=== PATIENT | female | born 1930 | race Caucasian/White ===

== ENCOUNTER 2018-03-02 10:55 | Inpatient (IN) | payer MEDICARE ==
[2018-03-02] MEDS ORDERED: Loperamide HCl 2 MG CAP ONE (12:00)
[2018-03-02 12:08] LABS: #Basophils 0.1 thou/uL (0.0-0.2); #Lymphocytes 0.6 thou/uL (1.20-3.40); #Monocytes 0.4 thou/uL (0.11-0.59); #Neutrophils 3.2 thou/uL (1.40-6.50); %Basophils 1.4 % (0.0-1.0); %Eosinophils 0.6 % (0.0-10.0); %Lymphocytes 14.8 % (21.0-51.0); %Monocytes 8.7 % (0.0-10.0); %Neutrophils 74.5 % (42.0-75.0); Hemoglobin 14.6 g/dL (12.0-16.0); Mean Corpuscular HGB CONC 34.2 g/dL (32.0-36.0); Mean Corpuscular Hemoglobin 32.2 pg (27.0-31.0); Mean Corpuscular Volume 94.4 fl (81.0-99.0); Mean Platelet Volume 9.5 fL (7.4-10.4); Platelet Count 124 thou/uL (130-400); RBC Distribution Width 11.7 % (11.5-14.5); Red Blood Cell (RBC) Count 4.54 mill/uL (4.20-5.40); White Blood Cell (WBC) Count 4.3 thou/uL (4.8-10.8)
[2018-03-02 12:30] LABS: ALT (SGPT) 13 U/L (8-55); AST (SGOT) 20 U/L (5-34); Albumin 4.1 g/dL (3.4-4.8); Alkaline Phosphatase 47 U/L (40-150); Anion Gap 13 mmol/L (10-20); BUN (Urea Nitrogen) 13 mg/dL (9.8-20.1); Bilirubin, Total 0.6 mg/dL (0.2-1.2); Calc. Creatinine Clearance 0 mL/min (70-130); Carbon Dioxide 23 mmol/L (23-31); Chloride 102 mmol/L (98-107); Estimated GFR-MDRD 58; Globulin 3.2 g/dL (2.4-3.5); Glucose 104 mg/dL (83-110); Lipase 16 U/L (8-78); Potassium 3.4 mmol/L (3.5-5.1); Protein, Total 7.3 g/dL (6.0-8.3); Sodium 135 mmol/L (136-145)
--- NOTE | 2018-03-02 13:45 | CT ---
CT ABDOMEN AND PELVIS WITH IV CONTRAST: Date: 03/02/18 HISTORY: Abdominal pain and diarrhea. FINDINGS: There are no previous exams for comparison. There are mild chronic changes in the lung bases. Calcified granulomas are seen in the spleen. There is a 2.6 cm cyst in the posterior segment of the right lobe of the liver. Tiny low density lesion in the left lobe of the liver is likely a cyst as well. The patient is post cholecystectomy. No fee air, free fluid, or lymphadenopathy seen in the abdomen or pelvis. Uterus is present. There are vascular calcifications without evidence of aneurysmal dilatation of the abdominal aorta. The pancreas, adrena l glands, and kidneys are unremarkable. There are vascular calcifications without evidence of aneurysmal dilatation of the abdominal aorta. T here are degenerative changes in the spine. There is mild dilatation of the proximal and mid small gina wel loops with a transition point in the right lower quadrant. 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 Sigmoid diverticulosis is present. IMPRESSION: 1. Findings suggestive of partial small bowel obstruction. 2. Liver cysts. 3. Old granulomatous disease. 4. Calcified mucocele of appendix. 5. Sigmoid diverticulosis. POS: [facility]
[2018-03-02] MEDS ORDERED: Amiodarone 200 MG TAB PO SCH (14:25)
[2018-03-02] MEDS ORDERED: Guaifenesin DM 100-10/5 ML UDCUP PO PRN (14:25)
[2018-03-02] MEDS ORDERED: Acetaminophen 325 MG TAB PO PRN (14:25)
[2018-03-02] MEDS ORDERED: Ondansetron HCl/PF 4 MG/2 ML Vial IVP PRN (14:25)
--- NOTE | 2018-03-02 14:56 | HP ---
DATE OF ADMISSION: 03/02/2018 REASON FOR ADMISSION: Acute gastroenteritis, possible partial small-bowel obstruction. HISTORY OF PRESENT ILLNESS: The patient gives history of having severe abdominal pain which was generalized, 10/10 in intensity, colicky in nature, which started on and Saturday. It was slowly easing up on Saturday, but the patient developed diarrhea on Saturday. She had nearly 10-12 times loose watery stool, no blood or mucus in it. Saturday, again the diarrhea eased up to 6-7 times. She started vomiting from yesterday evening and has been retching to the point her vomitus is bilious at present. She called her primary care physician this morning, Dr. Beard and was asked to go to the emergency room to get IV fluids. Here in the ER, she has had CT of the abdomen and pelvis done, which shows findings of possible partial small-bowel obstruction. No complaints of chest pain, palpitation, PND or orthopnea. The patient normally ambulates by herself. 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 Adkins, history of , tonsillectomy, hypothyroidism. CURRENT MEDICATIONS: The patient is on Xarelto 20 mg daily, amiodarone 200 mg daily, lisinopril 2.5 mg p.o. daily, torsemide 30 mg p.o. q.a.m., potassium chloride 10 mEq p.o. daily, levothyroxine 50 mcg p.o. daily, Prempro 0.625/2.5 mg 1 tab daily, magnesium 250 mg daily, vitamin B12 one tab daily, vitamin C 500 mg p.o. daily, vitamin D 3000 units p.o. daily, vitamin E 400 units p.o. daily. ALLERGIES: No known drug allergies. PERSONAL HISTORY: Does not abuse alcohol or drugs. No history of smoking. FAMILY HISTORY: Mother at the age of 104 years from old age. Father at the age of 64 years. He has had issues with his liver. He was not alcoholic. Oldest brother is currently living and is 94 years old. Her oldest son of Hodgkin's cancer at the age of 18 years, has a living son living in [place]. His name is Stew. The patient lives alone, ambulates by herself , does not use any assistive devices, she does all her activities by herself. CODE STATUS: Full. Power of assistant prosecuting attorney is her son, Mr. Mathias. He lives in [facility]. REVIEW OF SYSTEMS: The following complete review of systems was negative, unless otherwise mentioned in the HPI or below: Constitutional: Weight loss or gain, ability to conduct usual activities. Skin: Rash, itching. Eyes: Double vision, pain. ENT/Mouth: Nose bleeding, neck stiffness, pain, tenderness. Cardiovascular: Palpitations, dyspnea on exertion, orthopnea. Respiratory: Shortness of breath, wheezing, cough, hemoptysis, fever or night sweats. Gastrointestinal: Poor appetite, abdominal pain, heartburn, nausea, vomiting, constipation, or diarrhea. Genitourinary: Urgency, frequency, dysuria, nocturia. Musculoskeletal: Pain, swelling. Neurologic/Psychiatric: Anxiety, depression. Allergy/Immunologic: Skin rash, bleeding tendency. PHYSICAL EXAMINATION: GENERAL: The patient is an 87-year-old female who is currently not in any acute distress. Her abdominal pain has eased up at present. VITAL SIGNS: Blood pressure 150/46, pulse 72 per minute, respiratory rate 18 per minute, temperature 98.4 degrees Fahrenheit, saturating 96% on room air. NECK: Supple. No elevated JVD. HEENT: Extraocular muscles intact. Pupils reacting to light. Oral cavity, mucous membranes are dry. No exudates or congestion. CARDIOVASCULAR: S1, S2 heard. Regular rhythm. RESPIRATORY: Air entry 1+ bilaterally. No rales or rhonchi. ABDOMEN: Soft, bowel sounds heard. No tenderness, rigidity or guarding. EXTREMITIES: No peripheral edema or calf tenderness. VASCULAR SYSTEM: Peripheral pulses 1+ bilateral. No ischemic ulcerations or gangrene. CENTRAL NERVOUS SYSTEM: No gross focal deficits noted. The patient is alert, awake and oriented well. PSYCHIATRIC: The patient's mood is euthymic. No hallucinations or delusions. LABORATORY DATA: White count of 4, H&H 14 and 42, platelet count 124,000, potassium 3.4, BUN 13, creatinine 0.9, 74% neutrophils. Serum glucose 104. Lactic acid 1.6. Liver enzymes within normal limits. Albumin is 4.1, lipase is 16. CT of the abdomen and pelvis done shows findings suggestive of possible partial small-bowel obstruction. There is mild dilatation of the proximal and mid small bowel loops with a transition point in the right lower quadrant. CLINICAL IMPRESSION AND PLAN: The patient will be admitted to medical/surgical floor for likely acute gastroenteritis. CAT scan is suspicious for possible partial small-bowel obstruction. We will keep her n.p.o. except for meds. Dr. Adkins has been consulted from ER. We will continue her amiodarone and levothyroxine. She will be gently hydrated with normal saline at 70 mL per hour. We will obtain stool studies including cultures and for C. diff. We will continue to closely monitor her on the medical floor. RADHA
[2018-03-02 15:41] VITALS: BMI 22.1
[2018-03-02] MEDS: Sodium Chloride 0.9% 1,000 ML IV SCH (16:23)
--- NOTE | 2018-03-02 17:09 | CON ---
DATE OF CONSULTATION: 03/02/2018 GENERAL SURGERY CONSULTATION CHIEF COMPLAINT: Nausea, vomiting and abdominal pain. HISTORY: This is an 87-year-old female with a 3-day history of nausea, vomiting, diarrhea and abdomi nal cramps, which followed eating a dinner of seafood and steak on . She was getting better a little bit, but this morning she got worse and came to the hospital. She said she just passed some flatus and has had a small bowel movement. PAST MEDICAL HISTORY: Significant for coronary artery disease, atrial fibrillation and hypertension. She has CVA of the right eye. PAST SURGICAL HISTORY: She had an appendectomy at age 14. She has had a laparoscopic cholecystectom y. She has had a section in 61 and tonsillectomy and adenoidectomy. MEDICATIONS: Include Xarelto, levothyroxine, potassium, torsemide, lisinopril, amiodarone, Prempro, magnesium, multivitamins. ALLERGIES: No known drug allergies. SOCIAL HISTORY: She is . No tobacco or alcohol. FAMILY HISTORY: Noncontributory. PHYSICAL EXAMINATION: VITAL SIGNS: Temperature 98, pulse 76, blood pressure 136/61. GENERAL: Well-developed, well-nourished female, looks younger than stated age, in no apparent distre ss. HEENT: Unremarkable. LUNGS: Clear. HEART: Regular rate and rhythm. ABDOMEN: Soft, nondistended. She has a well-healed surgical scar low midline. There are bowel soun ds present. EXTREMITIES: Unremarkable. LABORATORY FINDINGS: White count 4.3, H&H 14 and 42, platelet count 124,000. Electrolytes are unrem arkable. Chest CT scan showing some mild proximal and mid small bowel dilatation with a transition i n the right lower quadrant. ASSESSMENT: Possible partial small-bowel obstruction. PLAN: IV hydration, bowel rest.
[2018-03-02] MEDS ORDERED: ISOVUE-370 76%-LOCM 1 ML ONE (18:35)
[2018-03-02] MEDS: Famotidine 20 MG TAB PO SCH (21:47)
[2018-03-03 06:02] LABS: #Eosinphils 0.1 thou/uL (0.0-0.7); #Lymphocytes 1.5 thou/uL (1.20-3.40); #Monocytes 0.4 thou/uL (0.11-0.59); #Neutrophils 1.4 thou/uL (1.40-6.50); %Basophils 0.3 % (0.0-1.0); %Lymphocytes 43.7 % (21.0-51.0); %Monocytes 12.2 % (0.0-10.0); %Neutrophils 40.7 % (42.0-75.0); Hemoglobin 11.4 g/dL (12.0-16.0); Mean Corpuscular HGB CONC 34.6 g/dL (32.0-36.0); Mean Corpuscular Hemoglobin 32.6 pg (27.0-31.0); Mean Platelet Volume 9.4 fL (7.4-10.4); Platelet Count 108 thou/uL (130-400); RBC Distribution Width 11.8 % (11.5-14.5); Red Blood Cell (RBC) Count 3.49 mill/uL (4.20-5.40); White Blood Cell (WBC) Count 3.5 thou/uL (4.8-10.8)
[2018-03-03 06:08] LABS: Anion Gap 11 mmol/L (10-20); BUN (Urea Nitrogen) 10 mg/dL (9.8-20.1); Calc. Creatinine Clearance 49 mL/min (70-130); Carbon Dioxide 19 mmol/L (23-31); Chloride 111 mmol/L (98-107); Estimated GFR-MDRD 77; Glucose 72 mg/dL (83-110); Potassium 3.3 mmol/L (3.5-5.1); Sodium 138 mmol/L (136-145)
[2018-03-03] MEDS: Levothyroxine Sodium 50 MCG TAB PO SCH (06:23)
[2018-03-03] MEDS: Sodium Chloride 0.9% 1,000 ML IV SCH ×2 (06:24→17:23)
[2018-03-03] MEDS: Famotidine 20 MG TAB PO SCH (08:13)
[2018-03-03] MEDS: Enoxaparin Sodium 40 MG/0.4 ML SYRINGE SC SCH (08:13)
[2018-03-03] MEDS: Amiodarone 200 MG TAB PO SCH (08:13)
--- NOTE | 2018-03-03 11:34 | PDOC.PN ---
- Subjective Encounter Start Date: 03/03/18 Encounter Start Time: 09:20 Subjective: no bm from admission, says might have passed some gas -: mild abd distention and pain from am, no nausea or vomiting -: is amb in room, son at bedside - Objective Resuscitation Status: Resuscitation Status FULL:Full Resuscitation MAR Reviewed: Yes Vital Signs & Weight: Vital Signs (12 hours) Temp Pulse Resp BP Pulse Ox 03/03/18 08:24 98.0 F 74 18 97 03/03/18 08:16 74 03/03/18 07:39 98.0 F 62 18 111/57 L 97 03/03/18 04:28 98.3 F 69 16 117/62 96 Weight Weight 125 lb I&O: 03/02/18 03/03/18 03/04/18 06:59 06:59 06:59 Intake Total 330 900 Output Total 600 Balance 330 300 Result Diagrams: 03/03/18 04:41 03/03/18 04:41 Phys Exam - Physical Examination HEENT: PERRLA, moist MMs Neck: no JVD, supple Respiratory: no wheezing, no rales Cardiovascular: RRR, no significant murmur Gastrointestinal: soft, non-tender, no distention, positive bowel sounds no rigidity or guarding Musculoskeletal: no edema, pulses present Neurological: non-focal, moves all 4 limbs Psychiatric: normal affect, A&O x 3 Dx/Plan (1) Acute gastroenteritis Code(s): K52.9 - NONINFECTIVE GASTROENTERITIS AND COLITIS, UNSPECIFIED Status : Acute Comment: likely viral (2) SBO (small bowel obstruction) Code(s): K56.609 - UNSP INTESTNL OBST, UNSP TO PARTIAL VERSUS COMPLETE OBST Status: Acute Comment: partial per CT findings (3) Hypothyroidism Code(s): E03.9 - HYPOTHYROIDISM, UNSPECIFIED Status: Chronic Qualifiers: Hypothyroidism type: unspecified Qualified Code(s): E03.9 - Hypothyroidism , unspecified (4) HTN (hypertension) Code(s): I10 - ESSENTIAL (PRIMARY) HYPERTENSION Status: Chronic Qualifiers: Hypertension type: essential hypertension Qualified Code(s): I10 - Essential (primary) hypertension (5) Afib Code(s): I48.91 - UNSPECIFIED ATRIAL FIBRILLATION Status: Chronic Qualifiers: Atrial fibrillation type: chronic Qualified Code(s): I48.2 - Chronic atrial fibrillation - Plan on liq diet per gen surgery advice -: abd is benign on clinical exam but has not passed bm yet -: to amb as tolerated in hallway -: continue amiod, synthroid and gentle iv hydration -: d/w pt and son at bedside * . Review of Systems - Medications/Allergies Allergies/Adverse Reactions: Allergies Allergy/AdvReac Type Severity Reaction Status Date / Time No Known Drug Allergies Allergy Verified 03/02/18 15:10 Medications: Current Medications Acetaminophen (Tylenol) 650 mg PO Q4H PRN PRN Reason: Headache/Fever or Pain Amiodarone HCl (Cordarone) 200 mg PO DAILY [facility] Last Admin: 03/03/18 08:13 Dose: 200 mg Enoxaparin Sodium (Lovenox) 40 mg SC 0900 [facility] Last Admin: 03/03/18 08:13 Dose: 40 mg Famotidine (Pepcid) 20 mg PO BID [facility] Last Admin: 03/03/18 08:13 Dose: 20 mg Guaifenesin/Dextromethorphan (Robitussin Dm) 15 ml PO Q4H PRN PRN Reason: Cough Sodium Chloride (Normal Saline 0.9%) 1,000 mls @ 70 mls/hr IV .[id number] [facility] Last Admin: 03/03/18 06:24 Dose: 1,000 mls Levothyroxine Sodium (Synthroid) 50 mcg PO 0600 [facility] Last Admin: 03/03/18 06:23 Dose: 50 mcg Ondansetron HCl (Zofran) 4 mg IVP Q6H PRN PRN Reason: Nausea/Vomiting
[2018-03-04] MEDS: Levothyroxine Sodium 50 MCG TAB PO SCH (05:46)
[2018-03-04] MEDS: Sodium Chloride 0.9% 1,000 ML IV SCH ×2 (07:25→23:46)
[2018-03-04] MEDS: Amiodarone 200 MG TAB PO SCH (09:27)
[2018-03-04] MEDS: Enoxaparin Sodium 40 MG/0.4 ML SYRINGE SC SCH (09:28)
[2018-03-04] MEDS ORDERED: Loperamide HCl 2 MG CAP PO PRN (13:05)
--- NOTE | 2018-03-04 13:22 | CON ---
DATE OF CONSULTATION: 03/04/2018 HISTORY OF PRESENT ILLNESS: The patient is an 87-year-old female who was in her normal sta te of health until 2 days prior to admission when she developed any abdominal crampy pain and diarrhe a. This diarrhea was nonbloody without mucus or oil. She did have 2 episodes of vomiting. This per sisted and she became fairly weak and dehydrated and came to the emergency room. She has not had dorothy or episodes of this. No new medications have been given, but she did take antibiotics approximately a month ago for bronchitis. PAST MEDICAL HISTORY: Includes chronic atrial fibrillation, cerebrovascular accident, hypertension, and hypothyroidism. PAST SURGICAL HISTORY: Includes appendectomy, cholecystectomy, and tonsillectomy. CURRENT MEDICATIONS: Xarelto 20 mg p.o. daily, amiodarone 200 mg p.o. daily, lisinopril 2.5 mg p.o. daily, torsemide 30 mg p.o. q.a.m., potassium chloride 10 mEq p.o. daily, levothyroxine 50 mcg p.o. d aily, Prempro 1 p.o. daily, magnesium 250 mg p.o. daily, vitamin B12 1 p.o. daily, vitamin C 500 mg p .o. daily, vitamin D3 3000 units p.o. every day, vitamin E 400 mg p.o. daily. ALLERGIES: No known allergies. SOCIAL HISTORY: She does not smoke or drink. FAMILY HISTORY: Negative for GI or liver disease. REVIEW OF SYSTEMS: Constitutional: Fever, chills, no weight loss. Eyes: No blurred vision or doub le vision. ENT: No sore throat or earaches. Cardiovascular: No chest pain or palpitations. Pulmo nary: No shortness of breath, cough or wheezing. Gastrointestinal: See above. Genitourinary: No hematuria or dysuria. Musculoskeletal: No joint pain or muscle weakness. Skin: No rashes. Neurol ogic: No numbness or seizure activity. PHYSICAL EXAMINATION: GENERAL: Shows an elderly white female in no acute distress. VITAL SIGNS: Temperature 98.1, pulse 62, respiratory rate 14, blood pressure 117/62. HEENT: Unremarkable. NECK: Supple. CHEST: Clear. CARDIOVASCULAR: Irregular rate and rhythm. ABDOMEN: Soft, nontender, without organomegaly or masses. Bowel sounds are present and normoactive. RECTAL: Deferred. EXTREMITIES: Normal. NEUROLOGIC: Nonfocal. LABORATORY DATA: Shows a white blood cell count of 4.3, hemoglobin 14.6, hematocrit 42.9, platelet c ount 124,000. Chemistry shows sodium 135, potassium 3.4. CT abdomen and pelvis with contrast showed a suggestion of a partial small-bowel obstruction, liver cysts, and sigmoid diverticula. Stool for C. difficile was negative. C. difficile for Campylobacter and Shigella toxin were negative . Stool culture was negative. ASSESSMENT: 1. Probable viral gastroenteritis. 2. Atrial fibrillation. 3. Viral gastroenteritis. 4. Atrial fibrillation. 5. Dehydration. RECOMMENDATIONS: 1. Advance diet. 2. Okay to use Imodium. 3. We will follow with you.
--- NOTE | 2018-03-04 13:41 | PDOC.PN ---
- Subjective Encounter Start Date: 03/04/18 Encounter Start Time: 11:00 Subjective: has started to have diarrhea again, no nausea or vomiting -: no abd pain -: son at bedside - Objective Resuscitation Status: Resuscitation Status FULL:Full Resuscitation MAR Reviewed: Yes Vital Signs & Weight: Vital Signs (12 hours) Temp Pulse Resp BP Pulse Ox 03/04/18 12:15 98.1 F 62 14 117/62 94 L 03/04/18 08:00 97.7 F 66 16 03/04/18 07:49 97.7 F 66 16 115/62 96 03/04/18 04:57 97.6 F 59 L 14 122/61 96 Weight Admit Weight 125 lb Weight 125 lb I&O: 03/03/18 03/04/18 03/05/18 06:59 06:59 06:59 Intake Total 330 3980 Output Total 600 Balance 330 3380 Result Diagrams: 03/03/18 04:41 03/03/18 04:41 Phys Exam - Physical Examination HEENT: PERRLA, moist MMs Neck: no JVD, supple Respiratory: no wheezing, no rales Cardiovascular: RRR, no significant murmur Gastrointestinal: soft, non-tender, positive bowel sounds Musculoskeletal: no edema, pulses present Neurological: non-focal, moves all 4 limbs Psychiatric: normal affect, A&O x 3 Dx/Plan (1) Acute gastroenteritis Code(s): K52.9 - NONINFECTIVE GASTROENTERITIS AND COLITIS, UNSPECIFIED Status : Acute Comment: likely viral (2) SBO (small bowel obstruction) Code(s): K56.609 - UNSP INTESTNL OBST, UNSP TO PARTIAL VERSUS COMPLETE OBST Status: Ruled-out Comment: partial per CT findings (3) Hypothyroidism Code(s): E03.9 - HYPOTHYROIDISM, UNSPECIFIED Status: Chronic Qualifiers: Hypothyroidism type: unspecified Qualified Code(s): E03.9 - Hypothyroidism , unspecified (4) HTN (hypertension) Code(s): I10 - ESSENTIAL (PRIMARY) HYPERTENSION Status: Chronic Qualifiers: Hypertension type: essential hypertension Qualified Code(s): I10 - Essential (primary) hypertension (5) Afib Code(s): I48.91 - UNSPECIFIED ATRIAL FIBRILLATION Status: Chronic Qualifiers: Atrial fibrillation type: chronic Qualified Code(s): I48.2 - Chronic atrial fibrillation - Plan 1 set of stool studies are -ve for e.coli, campylobacter, c.dif -: may imodium prn -: gentle iv hydration until diarrhea stabilizes -: full updates given to pt and son at bedside -: to ambulate as tolerated, on fiber restricted diet * . Review of Systems - Medications/Allergies Allergies/Adverse Reactions: Allergies Allergy/AdvReac Type Severity Reaction Status Date / Time No Known Drug Allergies Allergy Verified 03/02/18 15:10 Medications: Current Medications Acetaminophen (Tylenol) 650 mg PO Q4H PRN PRN Reason: Headache/Fever or Pain Amiodarone HCl (Cordarone) 200 mg PO DAILY [facility] Last Admin: 03/04/18 09:27 Dose: 200 mg Enoxaparin Sodium (Lovenox) 40 mg SC 0900 [facility] Last Admin: 03/04/18 09:28 Dose: 40 mg Guaifenesin/Dextromethorphan (Robitussin Dm) 15 ml PO Q4H PRN PRN Reason: Cough Sodium Chloride (Normal Saline 0.9%) 1,000 mls @ 70 mls/hr IV .[id number] [facility] Last Admin: 03/04/18 07:25 Dose: 1,000 mls Levothyroxine Sodium (Synthroid) 50 mcg PO 0600 [facility] Last Admin: 03/04/18 05:46 Dose: 50 mcg Loperamide HCl (Imodium) 2 mg PO PRN PRN PRN Reason: Diarrhea/Loose Stools Ondansetron HCl (Zofran) 4 mg IVP Q6H PRN PRN Reason: Nausea/Vomiting
[2018-03-05] MEDS: Levothyroxine Sodium 50 MCG TAB PO SCH (06:55)
[2018-03-05 08:29] LABS: #Eosinphils 0.1 thou/uL (0.0-0.7); #Lymphocytes 1.1 thou/uL (1.20-3.40); #Monocytes 0.3 thou/uL (0.11-0.59); #Neutrophils 1.6 thou/uL (1.40-6.50); %Eosinophils 3.1 % (0.0-10.0); %Lymphocytes 36.6 % (21.0-51.0); %Monocytes 8.8 % (0.0-10.0); %Neutrophils 51.5 % (42.0-75.0); Hemoglobin 11.3 g/dL (12.0-16.0); Mean Corpuscular HGB CONC 35.3 g/dL (32.0-36.0); Mean Corpuscular Volume 93.5 fl (81.0-99.0); Mean Platelet Volume 8.9 fL (7.4-10.4); Platelet Count 116 thou/uL (130-400); RBC Distribution Width 11.8 % (11.5-14.5); Red Blood Cell (RBC) Count 3.43 mill/uL (4.20-5.40); White Blood Cell (WBC) Count 3.1 thou/uL (4.8-10.8)
[2018-03-05 08:35] LABS: Anion Gap 8 mmol/L (10-20); BUN (Urea Nitrogen) 5 mg/dL (9.8-20.1); Calc. Creatinine Clearance 51 mL/min (70-130); Carbon Dioxide 21 mmol/L (23-31); Chloride 114 mmol/L (98-107); Estimated GFR-MDRD 79; Glucose 100 mg/dL (83-110); Sodium 140 mmol/L (136-145)
[2018-03-05] MEDS: Amiodarone 200 MG TAB PO SCH (08:45)
[2018-03-05] MEDS: Enoxaparin Sodium 40 MG/0.4 ML SYRINGE SC SCH (08:45)
--- NOTE | 2018-03-05 12:54 | PDOC.PN ---
- Subjective Encounter Start Date: 03/05/18 Encounter Start Time: 08:10 Subjective: no abd pain, nausea or diarrhea from last evening -: is tolerating oral diet so far - Objective Resuscitation Status: Resuscitation Status FULL:Full Resuscitation MAR Reviewed: Yes Vital Signs & Weight: Vital Signs (12 hours) Temp Pulse Resp BP Pulse Ox 03/05/18 11:23 98 F 61 16 129/55 L 98 03/05/18 08:45 97.6 F 60 14 126/68 97 03/05/18 04:26 97.8 F 61 20 112/62 96 Weight Admit Weight 125 lb Weight 125 lb I&O: 03/04/18 03/05/18 03/06/18 06:59 06:59 06:59 Intake Total 3980 1500 Output Total 600 Balance 3380 1500 Result Diagrams: 03/05/18 08:05 03/05/18 08:05 Phys Exam - Physical Examination HEENT: PERRLA, moist MMs Neck: no JVD, supple Respiratory: no wheezing, no rales Cardiovascular: RRR, no significant murmur Gastrointestinal: soft, non-tender, no distention, positive bowel sounds Musculoskeletal: no edema, pulses present Neurological: non-focal, moves all 4 limbs Psychiatric: normal affect, A&O x 3 Dx/Plan (1) Acute gastroenteritis Code(s): K52.9 - NONINFECTIVE GASTROENTERITIS AND COLITIS, UNSPECIFIED Status : Acute Comment: likely viral (2) SBO (small bowel obstruction) Code(s): K56.609 - UNSP INTESTNL OBST, UNSP TO PARTIAL VERSUS COMPLETE OBST Status: Ruled-out Comment: partial per CT findings (3) Hypothyroidism Code(s): E03.9 - HYPOTHYROIDISM, UNSPECIFIED Status: Chronic Qualifiers: Hypothyroidism type: unspecified Qualified Code(s): E03.9 - Hypothyroidism , unspecified (4) HTN (hypertension) Code(s): I10 - ESSENTIAL (PRIMARY) HYPERTENSION Status: Chronic Qualifiers: Hypertension type: essential hypertension Qualified Code(s): I10 - Essential (primary) hypertension (5) Afib Code(s): I48.91 - UNSPECIFIED ATRIAL FIBRILLATION Status: Chronic Qualifiers: Atrial fibrillation type: chronic Qualified Code(s): I48.2 - Chronic atrial fibrillation - Plan hemostable -: dc pt home -: to f/u with PCP in 1 week. * .
[2018-03-05] MEDS ORDERED: Potassium Chloride 20 MEQ TAB PO SCH (13:00)
[2018-03-05 15:27] VITALS: BP 113/62; TEMP 98
[2018-03-05] MEDS: Sodium Chloride 0.9% 1,000 ML IV SCH (15:29)
--- NOTE | 2018-03-06 01:34 | DIS ---
DATE OF ADMISSION: 03/02/2018 DATE OF DISCHARGE: 03/05/2018 DISCHARGE DISPOSITION: To home. PRIMARY DISCHARGE DIAGNOSES: Acute gastroenteritis, likely viral; initial suspicion for small-bowel obstruction, resolved. SECONDARY DISCHARGE DIAGNOSES: Hypertension, chronic atrial fibrillation, and hypothyroidism. PROCEDURES DONE DURING HOSPITALIZATION: CT of the abdomen and pelvis done on the day of admission sh owed findings suggestive of partial small-bowel obstruction. There was also sigmoid diverticulosis s een. Stool studies including Campylobacter antigen assay, Shiga toxin, and C. diff were all negative . H&H 11 and 32, platelet count 116. INPATIENT CONSULTS: Dr. Adkins for General Surgery, Dr. Long for Gastroenterology. DISCHARGE PLAN: The patient to follow up with primary care physician in 1 week. BRIEF COURSE DURING HOSPITALIZATION: The patient initially came to ER with complaints of nausea, vom iting, and diarrhea, and abdominal pain. She also had a CT of the abdomen and pelvis done, which was suggestive of partial small-bowel obstruction. In view of this, the patient was admitted to medical /surgical floor. She has had stool studies done, which were negative for any infectious etiology. T he patient for 24 hours did not pass any stool, but then started to have profuse diarrhea again for t he next 24 hours. The last 24 hours, the patient has not had any loose stools. She is tolerating or al solid diet after she was weaned from n.p.o. to a liquid diet and then solid. She was evaluated by Dr. Adkins for General Surgery, Dr. Long for Gastroenterology as well. She is ambulating and eating well prior to discharge. Please see a [id number] [email or web address] for the day of discharg ayana
== END 2018-03-05 15:52 | disposition home or self-care (01) | DRG 392 ==
LOC: ERS 10:55 → SURG A 14:24
PROVIDERS: ADMIT Internal Medicine; ATTEND Internal Medicine
DX: K52.9 Noninfective gastroenteritis and colitis, unspecified (principal); K56.600 Partial intestinal obstruction, unspecified as to cause; I48.2 Chronic atrial fibrillation; Z79.01 Long term (current) use of anticoagulants; I69.398 Other sequelae of cerebral infarction; H53.9 Unspecified visual disturbance; I10 Essential (primary) hypertension; E03.9 Hypothyroidism, unspecified; E86.0 Dehydration; I25.10 Atherosclerotic heart disease of native coronary artery without angina pectoris
CPT/HCPCS: 36415; 74177; 80048; 80053; 83605; 83690; 85025; 87045; 87046; 87081; 87324; 87449; 87899; 96360; J1650

== ENCOUNTER 2018-04-23 14:22 | Outpatient (CLI) | payer MEDICARE | END 2018-04-23 14:23 | disposition home or self-care (01) | LOC: BICMAMMO 14:22 | PROVIDERS: ATTEND Obstetrics & Gynecology | DX: Z12.31 Encounter for screening mammogram for malignant neoplasm of breast (principal); Z85.820 Personal history of malignant melanoma of skin | CPT/HCPCS: 77063; 77067 ==

== ENCOUNTER 2018-05-30 00:02 | Observation (INO) | payer MEDICARE ==
[2018-05-30 00:30] LABS: #Basophils 0.1 thou/uL (0.0-0.2); #Eosinphils 0.2 thou/uL (0.0-0.7); #Lymphocytes 2.4 thou/uL (1.20-3.40); #Monocytes 0.5 thou/uL (0.11-0.59); #Neutrophils 2.8 thou/uL (1.40-6.50); %Eosinophils 2.8 % (0.0-10.0); %Lymphocytes 41.1 % (21.0-51.0); %Monocytes 8.8 % (0.0-10.0); %Neutrophils 46.4 % (42.0-75.0); Hemoglobin 12.5 g/dL (12.0-16.0); Mean Corpuscular HGB CONC 35.1 g/dL (32.0-36.0); Mean Corpuscular Volume 93.9 fL (78.0-98.0); Mean Platelet Volume 9.7 fL (7.4-10.4); Platelet Count 152 thou/uL (130-400); RBC Distribution Width 11.9 % (11.5-14.5); Red Blood Cell (RBC) Count 3.79 mill/uL (4.20-5.40); White Blood Cell (WBC) Count 5.9 thou/uL (4.8-10.8)
[2018-05-30 00:37] LABS: INR-International Normal Ratio 1.8; PTT 33.6 SEC (22.9-36.1); Prothrombin Time 21.2 SEC (12.0-14.7)
[2018-05-30 00:54] LABS: CKMB 1.2 ng/mL (0-6.6); Troponin I Less than 0.010 ng/mL (< 0.028)
[2018-05-30 00:56] LABS: ALT (SGPT) 13 U/L (8-55); AST (SGOT) 16 U/L (5-34); Albumin 4.4 g/dL (3.4-4.8); Alkaline Phosphatase 46 U/L (40-150); Anion Gap 14 mmol/L (10-20); BUN (Urea Nitrogen) 31 mg/dL (9.8-20.1); Bilirubin, Total 0.4 mg/dL (0.2-1.2); Calc. Creatinine Clearance 0 mL/min (70-130); Calcium 9.4 mg/dL (7.8-10.44); Carbon Dioxide 23 mmol/L (23-31); Chloride 107 mmol/L (98-107); Estimated GFR-MDRD 39; Globulin 3.2 g/dL (2.4-3.5); Glucose 99 mg/dL (83-110); Potassium 3.6 mmol/L (3.5-5.1); Protein, Total 7.6 g/dL (6.0-8.3); Sodium 140 mmol/L (136-145)
[2018-05-30] MEDS ORDERED: Adacel (T-DAP) 0.5 ML VIAL ONE (00:58)
[2018-05-30] MEDS ORDERED: Acetaminophen 500 MG TAB ONE (00:58)
[2018-05-30] MEDS ORDERED: Lidocaine 1% w/Epinephrine 1:100K 20 ML VIAL ONE (02:00)
[2018-05-30] MEDS ORDERED: Ondansetron HCl/PF 4 MG/2 ML Vial IVP PRN (03:36)
[2018-05-30 04:33] VITALS: BMI 22.9
[2018-05-30] MEDS ORDERED: Levothyroxine Sodium 50 MCG TAB PO SCH (06:00)
--- NOTE | 2018-05-30 06:45 | HP ---
DATE OF ADMISSION: 05/30/2018 PRIMARY CARE PHYSICIAN: Emery Beard M.D. CODE STATUS: FULL CODE. TIME OF EVALUATION: 3:05 a.m. CHIEF COMPLAINT: Status post bowel bleeding. HISTORY OF PRESENT ILLNESS: This is an 87-year-old female patient with past medical history of atria l fibrillation on Xarelto, the patient went to see the [employer] football match and after she was going michelet e, she stripped and fell. She hit her head against the floor and had laceration and with significant bleeding, likely because she was on Seroquel. Patient never passed out, symptoms were reported ____ _ tripped and fell, alleviating factors only the medical treatment given in the ER. We will keep her in observation overnight given risk for intracranial bleeding. We will repeat a CT head tomorrow 12 :00 hours after the incident. REVIEW OF SYSTEMS: Constitutional: No fever or chills or generalized weakness. Respiratory: No co ugh, sputum production, shortness of breath. Cardiovascular: No palpitation, chest pain, shortness of breath. Gastrointestinal: No nausea, no vomiting, diarrhea or abdominal pain. [employer]: No dizzines s, headache or feeling lightheaded. Genitourinary: No burning with urination. Extremities: No leg swelling. Patient has a left-sided laceration and bleeding. All other systems were reviewed and ne gative except for the findings mentioned above. PAST MEDICAL HISTORY: Positive for atrial fibrillation, hypertension. PAST SURGICAL HISTORY: Cholecystectomy, , tonsillectomy. PSYCHIATRIC HISTORY: No previous psychiatric history. SOCIAL HISTORY: No alcohol use, no drug use. No smoking history. FAMILY HISTORY: Reviewed and noncontributory for current presentation. DRUG ALLERGIES: No known drug allergies. REPORTED MEDICATIONS: Torsemide, lisinopril, levothyroxine, potassium chloride, amiodarone, Prempro, magnesium, vitamins. Lesion is to be reviewed. PHYSICAL EXAMINATION: VITAL SIGNS: On presentation, blood pressure 155/52, heart rate 80, respiratory rate was 17, tempera ture 97.6, O2 saturation 95% on room air. GENERAL APPEARANCE: Patient is alert, oriented, in good mood. HEENT: Eyes, normal conjunctivae, moist oral mucosa, anicteric. NECK: No JVD. The patient has a left temporal laceration that is covered. RESPIRATORY: Bilateral air entry. No rales, no wheezing. Symmetric expansion. CARDIOVASCULAR: Normal rate, regular rhythm. No murmurs, no gallop. No edema. ABDOMEN: Soft, normal bowel sounds. MUSCULOSKELETAL: Baseline range of motion and strength. No tenderness. SKIN: Warm and intact. No pallor, no rash or redness. Peripheral pulses are present. Capillary re fill seems to be intact. NEUROLOGIC: Baseline sensorium. No evidence of any focal weakness. Baseline speech. Cranial nerve s seem to be intact. PSYCHIATRIC: The patient is in good mood. No anxiety, oriented, optimal judgment. RADIOLOGY: Patient had a brain CT and cervical spine CT showed no acute intracranial pathologies and no acute cervical fractures. LABORATORY DATA: Labs were reviewed. Patient has white count 5.9, hemoglobin 12.5, hematocrit 35, M CV 93, platelet count 152. Coagulation: PT 21, INR 1.8, PTT 33.6. Chemistry: Sodium 140, potassiu m 3.6, chloride 107, carbon dioxide 23, anion gap 14, BUN 31, creatinine 1.3 in previous visit was 0. 7, GFR 39, glucose 99, calcium 9.4, total bilirubin 0.4. LFTs were negative and troponin was negativ e. ASSESSMENT AND PLAN: Patient will be placed in the hospital with following medical problems. 1. Status post fall with laceration of the left frontal and temporal area with significant bleeding since the patient was on Xarelto, this has been treated, CT head was done with no significant intracr anial bleeding. Repeat CT head will be on tomorrow 12 hours after the incident. If normal, patient will be discharged. 2. Possible acute kidney injury. There is an increase in creatinine more than 0.3 mg/dL from previo us admissions, the patient was . We will monitor. 3. History of atrial fibrillation, this problem is controlled, we will reconcile home meds, we will give the patient anticoagulation for discharge. 4. History of hypertension, is controlled, reconcile home meds once daily. 5. Deep venous thrombosis prophylaxis. Patient is anticoagulated.
[2018-05-30 08:24] VITALS: BP 136/55; TEMP 98
--- NOTE | 2018-05-30 08:34 | CT ---
PRELIMINARY REPORT/[facility]/EMERGENTY AFTER-HOURS PROCEDURE CT Head Without Intravenous Contrast CLINICAL HISTORY: 87 years old, female; Injury or trauma; Fall; Initial encounter; Abrasion; Forehead; Patient HX: Martha ent presents for evaluation of fall, while walking or running, landing on head, landing on left side TECHNIQUE: Axial computed tomography images of the head/brain without intravenous contrast. COMPARISON: No relevant prior studies available. FINDINGS: Brain: Scattered areas of hypoattenuation, likely chronic small vessel ischemic change, demyelination , or gliosis. There is parenchymal atrophy. Ventricles: Normal. Bones/joints: Normal. No acute fracture. Soft tissues: Left frontal soft tissue swelling/contusion. Vasculature: Atherosclerotic vascular calcifications. Sinuses: Normal. Mastoid air cells: Normal as visualized. No mastoid effusion. IMPRESSION: 1. No acute intracranial abnormality. 2. Left frontal soft tissue swelling/contusion. 3. Incidental/non-acute findings are described above. Thank you for allowing us to participate in the care of your patient. Dictated and Authenticated by: Mj Tobar MD 05/30/2018 1:35 AM Central Time ([place] & [place]) FINAL REPORT CT BRAIN WITHOUT CONTRAST: I agree with the preliminary report given by Dr. jM Tobar of [facility]. POS: OFF
[2018-05-30] MEDS: Acetaminophen 325 MG TAB PO PRN ×2 (08:40→15:15)
--- NOTE | 2018-05-30 08:43 | CT ---
PRELIMINARY REPORT/[facility]/EMERGENTY AFTER-HOURS PROCEDURE CT Cervical Spine Without Intravenous Contrast CLINICAL HISTORY: 87 years old, female; Injury or trauma; Fall; Initial encounter; Abrasion; Patient HX: Patient presen ts for evaluation of fall, while walking or running, landing on head, landing on left side TECHNIQUE: Axial computed tomography images of the cervical spine without intravenous contrast. COMPARISON: No relevant prior studies available. FINDINGS: Vertebrae: No acute fracture. Discs/spinal canal/neural foramina: Multilevel degenerative disc disease. Multilevel bilateral facet arthropathy and uncovertebral arthropathy, right greater than left. Degenerative changes of the atlan toaxial articulation. Left C3-4, right C5-6, and right C6-7 neural foraminal narrowing. Soft tissues: Normal. Lung apices: Normal as visualized. IMPRESSION: 1. No acute fracture. 2. Incidental/non-acute findings are described above. Thank you for allowing us to participate in the care of your patient. Dictated and Authenticated by: Mj Tobar MD 05/30/2018 1:38 AM Central Time ([place] & [place]) FINAL REPORT EMERGENT AFTER HOURS NONCONTRAST CT CERVICAL SPINE: DATE: 05/30/18. HISTORY: Injury after a fall. Landed on head and left side. TECHNIQUE: Contiguous axial CT images are obtained through the cervical spine from the skull base to the T3-4 le rohan. Sagittal and coronal reformatted images are provided. IMPRESSION: 1. No fracture or subluxation is seen involving the cervical spine. 2. Multilevel degenerative changes within the cervical spine with moderate to severe right-sided batsheva ral foraminal narrowing at the C3-4 and C5-6 levels primarily related to facet hypertrophic change as well as uncinate process hypertrophy at these levels. Additional levels of mild to moderate degrees of neural foraminal narrowing are present again related to bony encroachment. 3. Fusion of the facet joints on the right at the C3-4 level. 4. Subcentimeter hypodense nodules in each lobe of the thyroid gland. Nonemergent thyroid ultrasou nd may be beneficial for further evaluation as these nodules cannot be further characterized on this nonenhanced CT exam. 5. Mild symmetric biapical pleural and parenchymal scarring. 6. Vascular calcification of the aortic arch and the carotid arteries. 7. Findings are in agreement with the preliminary report by [facility]. POS: [facility]
[2018-05-30] MEDS ORDERED: Amiodarone 200 MG TAB PO SCH (09:00)
[2018-05-30] MEDS ORDERED: Ascorbic Acid 500 mg Chewable Tablet PO SCH (09:00)
[2018-05-30] MEDS ORDERED: medroxyPROGESTERone Acetate 2.5 MG TAB PO SCH (09:00)
[2018-05-30] MEDS ORDERED: M PROGEST ACET PO SCH (09:00)
[2018-05-30] MEDS ORDERED: Magnesium Oxide 250 MG TAB PO SCH ×2 (09:00→21:00)
[2018-05-30] MEDS ORDERED: Cyanocobalamin (Vitamin B-12) 1,000 MCG TAB PO SCH (09:00)
[2018-05-30] MEDS ORDERED: Lisinopril 2.5 MG TAB PO SCH (09:00)
[2018-05-30] MEDS ORDERED: Potassium Chloride 10 MEQ TAB PO SCH (09:00)
[2018-05-30] MEDS ORDERED: ESTROGEN CON PO SCH (09:00)
--- NOTE | 2018-05-30 10:11 | PDOC.PN ---
- Subjective Encounter Start Date: 05/30/18 Encounter Start Time: 09:00 Subjective: is moving all extremities -: fully oriented, no dizziness or chest pain or palp - Objective Resuscitation Status: Resuscitation Status FULL:Full Resuscitation MAR Reviewed: Yes Vital Signs & Weight: Vital Signs (12 hours) Temp Pulse Resp BP BP Pulse Ox 05/30/18 08:38 59 L 136/55 L 05/30/18 08:15 98 F 59 L 16 05/30/18 08:00 98 F 60 16 136/55 L 95 05/30/18 03:51 97.9 F 65 18 140/58 L 98 Weight Weight 129 lb 8 oz I&O: 05/29/18 05/30/18 05/31/18 06:59 06:59 06:59 Intake Total 0 Balance 0 Result Diagrams: 05/30/18 00:20 05/30/18 00:20 Phys Exam - Physical Examination HEENT: PERRLA, moist MMs Neck: no JVD, supple Respiratory: no wheezing, no rales Cardiovascular: RRR, no significant murmur Gastrointestinal: soft, non-tender, positive bowel sounds Musculoskeletal: no edema, pulses present Neurological: non-focal, moves all 4 limbs Psychiatric: normal affect, A&O x 3 Dx/Plan (1) Head injury due to trauma Code(s): S09.90XA - UNSPECIFIED INJURY OF HEAD, INITIAL ENCOUNTER Status: Acute Qualifiers: Encounter type: subsequent encounter Qualified Code(s): S09.90XD - Unspecified injury of head, subsequent encounter Comment: laceration of scalp with suturing done on arrival to ER (2) Afib Code(s): I48.91 - UNSPECIFIED ATRIAL FIBRILLATION Status: Chronic Qualifiers: Atrial fibrillation type: chronic (3) HTN (hypertension) Code(s): I10 - ESSENTIAL (PRIMARY) HYPERTENSION Status: Chronic Qualifiers: Hypertension type: essential hypertension (4) Hypothyroidism Code(s): E03.9 - HYPOTHYROIDISM, UNSPECIFIED Status: Chronic Qualifiers: Hypothyroidism type: unspecified - Plan hemo/neurostable -: may dc home if her second CT at 1 pm is normal -: to hold xarelto for 2 weeks and restart, d/w * . Review of Systems - Medications/Allergies Allergies/Adverse Reactions: Allergies Allergy/AdvReac Type Severity Reaction Status Date / Time No Known Drug Allergies Allergy Verified 03/02/18 15:10 Medications: Current Medications Acetaminophen (Tylenol) 650 mg PO Q4H PRN PRN Reason: Headache/Fever or Pain Last Admin: 05/30/18 08:40 Dose: 650 mg Amiodarone HCl (Cordarone) 200 mg PO DAILY [facility] Last Admin: 05/30/18 08:38 Dose: 200 mg Ascorbic Acid (Vitamin C) 500 mg PO DAILY [facility] Last Admin: 05/30/18 08:38 Dose: 500 mg Cyanocobalamin (Vitamin B-12) 500 mcg PO DAILY [facility] Last Admin: 05/30/18 08:39 Dose: 500 mcg Estrogens Conjugated (Premarin) 0.625 mg PO DAILY [facility] Last Admin: 05/30/18 09:51 Dose: Not Given Levothyroxine Sodium (Synthroid) 50 mcg PO 0600 [facility] Last Admin: 05/30/18 05:42 Dose: 50 mcg Lisinopril (Zestril) 2.5 mg PO DAILY [facility] Last Admin: 05/30/18 08:38 Dose: 2.5 mg Magnesium Oxide (Magnesium Oxide) 250 mg PO DAILY [facility] Last Admin: 05/30/18 08:40 Dose: 250 mg Magnesium Oxide (Magnesium Oxide) 500 mg PO [facility] Medroxyprogesterone Acetate (Provera) 2.5 mg PO DAILY [facility] Last Admin: 05/30/18 09:47 Dose: 2.5 mg Ondansetron HCl (Zofran) 4 mg IVP Q6H PRN PRN Reason: Nausea/Vomiting Potassium Chloride (Klor-Con 10) 10 meq PO DAILY [facility] Last Admin: 05/30/18 08:39 Dose: 10 meq Sodium Chloride (Flush - Normal Saline) 10 ml IVF PRN PRN PRN Reason: Saline Flush
--- NOTE | 2018-05-30 15:36 | CT ---
NONCONTRAST CT HEAD: DATE: 05/30/18. HISTORY: Recent trauma with scalp hematoma. Followup evaluation. COMPARISON: 05/30/18 at 1230 hours. FINDINGS: Small left frontal scalp hematoma is present but is smaller in size compared to prior exam. Subcutan eous soft tissue swelling is seen adjacent to the left zygomatic bone. No underlying calvarial fract ure is identified. There is no intraparenchymal or extraaxial hemorrhage seen. Mild cerebral and cerebellar volume loss are again present with stable mild chronic small-vessel ischemic changes. Ventricular system is nor mal in size, shape, and position. No other interval change from prior study. IMPRESSION: 1. No acute intracranial abnormality is demonstrated. 2. Mild decrease in size of left frontal scalp hematoma. 3. Stable cerebral and cerebellar volume loss as well as stable mild chronic small-vessel ischemic c hanges. POS: [facility]
--- NOTE | 2018-05-30 19:34 | DIS ---
DATE OF ADMISSION: 05/30/2018 DATE OF DISCHARGE: 05/30/2018 DISCHARGE DISPOSITION: To home. PRIMARY DISCHARGE DIAGNOSIS: History of head injury with due to mechanical trauma and scalp lacerati on, status post suturing. SECONDARY DISCHARGE DIAGNOSES: Chronic atrial fibrillation, hypertension, hypothyroidism. PROCEDURES DONE DURING HOSPITALIZATION: The patient has had a CT brain x2 which shows no acute intra cranial abnormality. There is a left frontal soft tissue swelling/contusion seen. There is no acute intracranial bleed, fractures or hemorrhage seen. CT cervical spine shows no acute fractures. H&H 12 and 35, platelet count 152. PT/INR 21 and 1.8, PTT 33, BUN 31, creatinine 1.3. Cardiac enzymes x 1 is negative. DISCHARGE MEDICATIONS: Amiodarone 200 mg p.o. daily, vitamin C 500 mg p.o. daily, vitamin D3 1000 un its p.o. daily, vitamin B12 500 mcg p.o. daily, Synthroid 50 mcg p.o. daily, lisinopril 2.5 mg p.o. d aily, magnesium 250 mg p.o. daily, potassium chloride 10 mEq p.o. daily, vitamin E 1000 units p.o. da von. ALLERGIES: No known drug allergies. DISCHARGE PLAN: The patient to follow up with primary care physician in one week and Dr. Damon in 2 weeks. BRIEF COURSE DURING HOSPITALIZATION: The patient initially was brought to emergency room after she h ad a mechanical fall with head injury and laceration to the frontal area of her scalp. She had sutur ing done in the ER. The patient was on Xarelto and had extensive blood loss. She was closely monito red under observation for the same. She has had 2 CAT scans for the brain done 12 hours apart, which have not shown any new findings or intracranial bleed. The patient has been advised to hold Xarelto for 2 weeks and to restart. She is otherwise hemodynamically and neurologically stable. Prior to d ischarge, she is ambulating and eating well. Please see a [id number] documentation on [employer] for the day of discharge.
== END 2018-05-30 15:21 | disposition home or self-care (01) ==
LOC: ERS 00:02 → 2SE 01:58
PROVIDERS: ADMIT Hospitalist; ATTEND Hospitalist
DX: S01.01XA Laceration without foreign body of scalp, initial encounter (principal); S01.81XA Laceration without foreign body of other part of head, initial encounter; I10 Essential (primary) hypertension; E03.9 Hypothyroidism, unspecified; I48.2 Chronic atrial fibrillation; Z79.01 Long term (current) use of anticoagulants; Z79.899 Other long term (current) drug therapy; W01.0XXA Fall on same level from slipping, tripping and stumbling without subsequent striking against object, initial encounter
CPT/HCPCS: 12001; 70450; 72125; 80053; 82553; 84484; 85025; 85610; 85730; 86850; 86900; 86901; 90471; 90715; 96360; 99285; G0378 ×2; J2001

== ENCOUNTER 2019-03-27 14:09 | Outpatient (CLI) | payer MEDICARE | END 2019-03-27 14:10 | disposition home or self-care (01) | LOC: CTENTCT 14:09 | PROVIDERS: ATTEND Specialist | DX: J30.0 Vasomotor rhinitis (principal) | CPT/HCPCS: 70486 ==